=== PATIENT | male | born 1985 | race African-American/Black ===

== ENCOUNTER 2016-05-16 19:18 | Emergency (ER) | payer MEDICAID ==
[~2016-05-16] VITALS: Ht 179.1 cm; Wt 72.7 kg
[2016-05-16 19:21] VITALS: Ht 179.1 cm; Wt 72.7 kg
[2016-05-16] MEDS ORDERED: CETI10CA PO (19:39)
[2016-05-16] MEDS ORDERED: PRED20TA PO (19:41)
[2016-05-16] MEDS ORDERED: KENC1 TOP (19:41)
--- NOTE | 2016-05-16 19:45 | ERD ---
ER Documentation Chief Complaint Date/Time DATE: 05/16/16 TIME: 19:43 Chief Complaint C/O SKIN IRRIATION ECZEMA +COUGH HPI This 30-year-old male presents with a worsening rash in the setting of a history of eczema or psoriasis. He does not have insurance is not been able to receive treatment. He denies fevers, vomiting, shortness breath or chest pain. Is uncertain of any known allergens. Is over his whole body and extremities and his meds are prescribed gels and creams in the past but does not have enough to cover his whole body. ROS All systems reviewed and are negative except as per history of present illness. Medications Home Meds Active Scripts Triamcinolone Acetonide (Triamcinolone Acetonide) 0.1% - 15 Gm Cream.gm., 1 APPLIC TOP QID for 10 Days, #1 TUB TWO 60G TUBES Prov:TOMMY RODRÍGUEZ MD 05/16/16 Prednisone* (Prednisone*) 20 Mg Tab, 40 MG PO DAILY for 8 Days, TAB 40 mg by mouth for 4 days then 20 mg by mouth for 4 days. Prov:TOMMY RODRÍGUEZ MD 05/16/16 Cetirizine Hcl* (Zyrtec*) 10 Mg Capsule, 10 MG PO DAILY, #30 TAB.CHEW Prov:TOMMY RODRÍGUEZ MD 05/16/16 Allergies Allergies: Coded Allergies: No Known Allergy (Unverified , 05/16/16) PMhx/Soc Medical and Surgical Hx: pt denies Surgical Hx Hx Respiratory Disorders: Yes (Asthma) Hx Miscellaneous Medical Probl: Yes (Eczema) Hx Alcohol Use: Yes (socially) Hx Substance Use: Yes (marijuana) Hx Tobacco Use: No Smoking Status: Never smoker Physical Exam Vitals Vital Signs Date Time Temp Pulse Resp B/P Pulse Ox O2 Delivery O2 Flow Rate FiO2 05/16/16 19:21 98.4 100 18 137/70 100 Physical Exam Const: [] Alert, [id number] per Head: Atraumatic Eyes: Normal Conjunctiva ENT: Normal External Ears, Nose and Mouth. Neck: Full range of motion..~ No meningismus. Resp: Clear to auscultation bilaterally Cardio: Regular rate and rhythm, no murmurs Abd: Soft, non tender, non distended. Normal bowel sounds Skin: Diffuse excoriated plaque type lesions and lichenification Back: No midline or flank tenderness Ext: No cyanosis, or edema Neur: Awake and alert Psych: Normal Mood and Affect Results 24 hrs Current Medications Medications (Trade) Dose Ordered Sig/Blanca Route PRN Reason Start Time Stop Time Status Last Admin Dose Admin Dexamethasone (Decadron) 10 mg ONCE ONCE IM 05/16/16 20:00 05/16/16 20:01 Procedures/MDM Patient has signs and symptoms of chronic diffuse psoriasis or eczema. He will be treated with the Decadron 10 mg IM, short prednisone taper, Zyrtec and triamcinolone. Patient was encouraged to pursue primary care and possible specialty appointment. Patient shows no evidence of life-threatening rashes, anaphylaxis,, cellulitis, additional causes of rash. The patient was stable with no new complaints during the ER course. Clinically, there is no current evidence to suggest meningitis, sepsis, acute abdomen, pneumonia, acute coronary syndrome, pulmonary embolism, or any other emergent condition appearing to require further evaluation or hospitalization. The patient should certainly return for any new or worsening symptoms per the aftercare instructions. They should otherwise follow-up with her primary care doctor for reevaluation this week. Departure Diagnosis: Primary Impression: Rash Condition: Stable Patient Instructions: Atopic Dermatitis (Eczema) Referrals: [facility] IF YOU DO NOT HAVE A PRIMARY DOCTOR YOU CAN CALL OUR PHYSICIAN REFERRAL HOTLINE AT IF YOU CAN NOT AFFORD TO SEE A PHYSICIAN YOU CAN CHOSE FROM THE FOLLOWING [facility] [address] [facility]. [facility] [address] [facility]. [facility] [address] [facility]. [facility] [address] [facility]. [facility] [address] [facility]. [facility]. [address] Additional Instructions: See primary doctor and recommend dermatology for further evaluation and management TOMMY RODRÍGUEZ MD May 16, 2016 19:45
[2016-05-16] MEDS ORDERED: DEXAMETHASONE 10 MG/ML 1 ML INJ IM ONE (20:00)
== END 2016-05-16 20:10 | disposition home or self-care (01) ==
LOC: FTE 19:18
DX: R21 Rash and other nonspecific skin eruption (principal); J45.909 Unspecified asthma, uncomplicated
CPT/HCPCS: 96372; J1100; Z7502

== ENCOUNTER 2016-07-05 15:12 | Emergency (ER) | payer MEDICAID ==
[~2016-07-05] VITALS: Ht 179.1 cm; Wt 74.5 kg
[~2016-07-05 15:12] MED LIST: CETI10CA PO; KENC1 TOP; PRED20TA PO
[2016-07-05 15:30] VITALS: Ht 179.1 cm; Wt 74.5 kg
[2016-07-05] MEDS ORDERED: CETI10CA PO (15:57)
[2016-07-05] MEDS ORDERED: KENC1 TOP (15:57)
[2016-07-05] MEDS ORDERED: PRED20TA PO (15:57)
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
== END 2016-07-05 15:58 | disposition home or self-care (01) ==
LOC: E/R 15:12
DX: R21 Rash and other nonspecific skin eruption (principal); J45.909 Unspecified asthma, uncomplicated
CPT/HCPCS: 99284

== ENCOUNTER 2016-08-20 15:27 | Emergency (ER) | payer SELFPAY ==
[~2016-08-20] VITALS: Ht 177.8 cm; Wt 75.0 kg
[2016-08-20 15:31] VITALS: Ht 177.8 cm; Wt 75.0 kg
[2016-08-20] MEDS ORDERED: TRIA15OI9 TOP (16:19)
[2016-08-20] MEDS ORDERED: MED4DP PO (16:19)
[2016-08-20] MEDS ORDERED: CETI10CA PO (16:19)
[2016-08-20] MEDS ORDERED: FLUT16SP17 NASAL (16:20)
--- NOTE | 2016-08-20 17:24 | ERD ---
ER Documentation Chief Complaint Date/Time DATE: 08/20/16 TIME: 17:22 Chief Complaint Complains of eczema and needs test STD's HPI 30-year-old male history of chronic eczema comes emergency room for medication refills, he states that usually prednisone and triamcinolone help. Patient also reports that his has recently told him that she had an STD, and would like to get checked. He denies dysuria, urgency, frequency, penile rashes, any genital pain. ROS All systems reviewed and are negative except as per history of present illness. Medications Home Meds Active Scripts Fluticasone Propionate* (Fluticasone Propionate* Nasal) 50 Mcg/August[place] - 16 Gm [place].susp, 1 SPRAY NASAL BID, #1 BOTTLE TO EACH NOSTRIL Prov:JOSH COLON PA-C 08/20/16 Methylprednisolone* (Medrol* DOSE PACK) 4 Mg/Dose-Pack Tab.ds.pk, 4 MG PO . DIRECTED, #1 PACKET Prov:JOSH COLON PA-C 08/20/16 Triamcinolone Acetonide (Triamcinolone Acetonide) 0.5% - 15 Gm Oint..gm., 1 APPLIC TOP BID, #1 TUB 1 Refill Prov:JOSH COLON PA-C 08/20/16 Cetirizine Hcl* (Zyrtec*) 10 Mg Capsule, 10 MG PO DAILY, #60 TAB.CHEW Prov:JOSH COOLN PA-C 08/20/16 Prednisone* (Prednisone*) 20 Mg Tab, 20 MG PO DAILY for 8 Days, #12 TAB take 40 mg PO once daily for first 4 days, then 20 mg PO once daily for 4 days. Prov:SANDY GAR PA-C 07/05/16 Cetirizine Hcl* (Zyrtec*) 10 Mg Capsule, 10 MG PO DAILY, #30 TAB.CHEW Prov:SANDY GAR PA-C 07/05/16 Triamcinolone Acetonide (Triamcinolone Acetonide) 0.1% - 15 Gm Cream.gm., 1 APPLIC TOP QID for 10 Days, #1 TUB Prov:SANDY GAR PA-C 07/05/16 Triamcinolone Acetonide (Triamcinolone Acetonide) 0.1% - 15 Gm Cream.gm., 1 APPLIC TOP QID for 10 Days, #1 TUB TWO 60G TUBES Prov:TOMMY RODRÍGUEZ MD 05/16/16 Prednisone* (Prednisone*) 20 Mg Tab, 40 MG PO DAILY for 8 Days, TAB 40 mg by mouth for 4 days then 20 mg by mouth for 4 days. Prov:TOMMY RODRÍGUEZ MD 05/16/16 Cetirizine Hcl* (Zyrtec*) 10 Mg Capsule, 10 MG PO DAILY, #30 TAB.CHEW Prov:TOMMY RODRÍGUEZ MD 05/16/16 Allergies Allergies: Coded Allergies: No Known Allergy (Unverified , 05/16/16) PMhx/Soc Hx Respiratory Disorders: Yes (Asthma) Hx Miscellaneous Medical Probl: Yes (Eczema) Hx Alcohol Use: Yes (socially) Hx Substance Use: Yes (marijuana) Hx Tobacco Use: No Smoking Status: Current some day smoker Physical Exam Vitals Vital Signs Date Time Temp Pulse Resp B/P Pulse Ox O2 Delivery O2 Flow Rate FiO2 08/20/16 15:31 98.4 90 20 136/62 98 Physical Exam \General: Well-developed, well-nourished. The patient appears in no acute distress. HEENT: Head is normocephalic, atraumatic. No scleral icterus. Oropharynx is clear. Neck: Supple. Nontender. Lungs: Clear to auscultation. Normal air movement. Heart: Regular rate and rhythm. S1 and S2 are normal. No murmurs, gallops, or rubs. Abdomen: Soft, nontender, nondistended. Bowel sounds are normoactive. Extremities: No clubbing or cyanosis. Normal pulses. Moving extremities x 4. No weakness. Neurologic: Alert and oriented 3. No focal deficits. Skin: Generalized eczema, no vesicles. No erythema, no cellulitis. Procedures/MDM 30-year-old male comes in with eczema, as well as STD screening. Patient was advised that we do not offer HIV screening given that there is no follow-up in the emergency room. Patient at this time does not he should show any signs of syphilis, however RPR and hepatitis C were drawn. I have advised him to follow- up outpatient with the primary care doctor for further HIV testing. Eczema does appear to be severe and chronic, he will be given refills of his medications. I also given him a list of community clinics, he is to follow-up with her primary care doctor to get a referral. Departure Diagnosis: Primary Impression: Eczema Additional Impression: Screening for STD (sexually transmitted disease) Condition: Good Patient Instructions: Atopic Dermatitis (Eczema) Additional Instructions: Call your primary care doctor TOMORROW for an appointment during the next 1-2 days.See the doctor sooner or return here if your condition worsens before your appointment time. JOSH COLON PA-C Aug 20, 2016 17:24
== END 2016-08-20 17:07 | disposition home or self-care (01) ==
LOC: FTE 15:27
DX: L30.9 Dermatitis, unspecified (principal); J45.909 Unspecified asthma, uncomplicated; F17.210 Nicotine dependence, cigarettes, uncomplicated; Z11.3 Encounter for screening for infections with a predominantly sexual mode of transmission
CPT/HCPCS: 86592; 86803; 87591; 99283